=== PATIENT | male | born 1960 | race Caucasian/White ===

== ENCOUNTER 2016-06-15 13:40 | Day surgery (SDC) | payer OTHER ==
[~2016-06-15] VITALS: Ht 182.9 cm; Wt 82.0 kg
[~2016-06-15 13:40] MED LIST: 0.9% Sodium Chloride 1,000 ML IV SCH; Sodium Chloride LOK Flush 10 mL Syringe IV PRN; fentaNYL-PF 50 mCg/mL 2 mL Inj IVPUSH PRN
[2016-06-15 14:21] VITALS: BP 134/80; PULSE 48; RESP 16; O2SAT 98
[2016-06-15] MEDS ORDERED: NO MEDS (14:21)
[2016-06-15] MEDS ORDERED: fentaNYL-PF 50 mCg/mL 2 mL Inj ONE (14:49)
[2016-06-15] MEDS ORDERED: 0.9% Sodium Chloride 1,000 ML IV ONE (15:11)
[2016-06-15 15:33] VITALS: BP 107/61; PULSE 51; RESP 16; O2SAT 100
[2016-06-15 15:44] VITALS: BP 101/67; PULSE 50; RESP 16; O2SAT 98
[2016-06-15 15:47] VITALS: BP 110/79; PULSE 62; RESP 14; O2SAT 94
--- NOTE | 2016-06-15 23:36 | ENDO ---
[address] [address] ENDOSCOPY PROCEDURE PATIENT: PAM VENTURA : 1960 MR#: [id number] ADMIT: 06/15/2016 JOB ID: [id number] DATE OF PROCEDURE: PROCEDURE: Colonoscopy. INDICATION: History of colon polyps. ANESTHESIA: Patient's ASA classification is I. Mallampati score was 1. MEDICATIONS: 1. Versed 5 mg. 2. Fentanyl 100 mcg. INSTRUMENT USED: PCF-H180AL. PREPARATION QUALITY: Good. PROCEDURE DETAILS: After informed consent was obtained, the patient was brought into the GI suite, where she was placed on oxygen via nasal cannula and monitored with continuous pulse oximeter, telemetry, and blood pressure monitoring. A time-out was performed. Then, she was placed in the left lateral decubitus position and medications were administered for sedation. Digital rectal exam was performed which was unremarkable. The colonoscope was then inserted into the rectum and advanced under direct visualization to the cecum, which was identified by the presence of the ileocecal valve and appendiceal orifice. Once the cecum was reached, the colonoscope was withdrawn back in the rectum, mucosa and lumen were examined. In the rectum, retroflexion was performed. Following retroflexion, remaining air in the rectum was suctioned and the procedure was completed. FINDINGS: Normal exam from rectum to cecum. As the colonoscope was being withdrawn through the anal canal small internal hemorrhoids were noted. IMPRESSION: Small internal hemorrhoids, otherwise normal exam from rectum to cecum. RECOMMENDATIONS: Repeat colonoscopy in 10 years, sooner if symptoms should dictate. COMPLICATIONS: None. ESTIMATED BLOOD LOSS: Zero.
== END 2016-06-15 23:59 | disposition home or self-care (01) ==
LOC: END 13:40
PROVIDERS: ATTEND Internal Medicine Gastroenterology
DX: Z12.11 Encounter for screening for malignant neoplasm of colon (principal); Z86.010 Personal history of colon polyps; K64.8 Other hemorrhoids
CPT/HCPCS: G0105; G0500; J2250; J3010; J7030